=== PATIENT | male | born 1965 | race Hispanic/Latino ===

== ENCOUNTER 2017-05-17 00:27 | Emergency (ER) | payer SELFPAY ==
[~2017-05-17] VITALS: Ht 175.3 cm; Wt 92.8 kg
[2017-05-17] MEDS ORDERED: TETANUS/DIPHTHERIA TOX ADULT 0.5 ML SYR IM ONE (01:00)
[2017-05-17 01:32] VITALS: BP 142/93
== END 2017-05-17 01:25 | disposition home or self-care (01) ==
LOC: FSED 00:27
DX: G89.11 Acute pain due to trauma (principal); S61.210A Laceration without foreign body of right index finger without damage to nail, initial encounter; W26.0XXA Contact with knife, initial encounter; Y92.26 Movie house or cinema as the place of occurrence of the external cause; F17.210 Nicotine dependence, cigarettes, uncomplicated
CPT/HCPCS: 90714; 99282